=== PATIENT | male | born 1960 | race Caucasian/White ===

== ENCOUNTER 2019-05-30 11:43 | Emergency (ER) | payer MEDICARE, OTHER ==
[2019-05-30 11:59] VITALS: TEMP 98
[2019-05-30] MEDS ORDERED: SODIUM CHLORIDE 0.9% 1,000 ML IV STA ×2 (12:11→13:43)
--- NOTE | 2019-05-30 12:16 | ED ---
General Adult HPI - General Chief complaint: Dizziness Stated complaint: orthostatic hypotension Time Seen by Provider: 05/30/19 12:07 Source: patient, EMS, RN notes reviewed Mode of arrival: EMS Limitations: no limitations - History of Present Illness Initial comments: Patient is a pleasant 58-year-old male presenting to the emergency department or lightheadedness. Symptoms have been for a couple days, worse today. Patient believes he has been eating and drinking normally. Patient states he does get lightheaded, especially with standing up. [place] reported patient had orthostatic hypotension. Patient is therefore alcohol problems. He should denies passing out. No headache or isolated weakness or confusion. - Related Data Home Medications Medication Instructions Recorded Confirmed Acetaminophen [Tylenol 8 Hour] 650 mg PO Q4H PRN MDD 6 TABS 05/30/19 05/30/19 Chlorpheniramine Maleate 4 mg PO Q4H PRN 05/30/19 05/30/19 [Chlor-Trimeton] DULoxetine HCL [Cymbalta] 60 mg PO DAILY@0600 05/30/19 05/30/19 Ibuprofen [Motrin] 600 mg PO Q6HR PRN 05/30/19 05/30/19 LORazepam [Ativan] 1 - 2 mg PO Q4H PRN 05/30/19 05/30/19 Loperamide [Imodium] 4 mg PO QID PRN 05/30/19 05/30/19 Metoprolol Tartrate [Lopressor] 50 mg PO BID@0600,1730 05/30/19 05/30/19 Ondansetron HCl [Zofran] 8 mg PO Q6H PRN 05/30/19 05/30/19 Tigan 200 Mg 200 mg IM Q6H PRN 05/30/19 05/30/19 Trimethobenzamide HCl [Tigan] 300 mg PO Q6H PRN 05/30/19 05/30/19 Zofran 2mg/Ml 4 mg IM Q6H PRN 05/30/19 05/30/19 amLODIPine [Norvasc] 10 mg PO DAILY@0600 05/30/19 05/30/19 traZODone HCL 50 - 150 mg PO HS 05/30/19 05/30/19 Previous Rx's Medication Instructions Recorded Magnesium Oxide [Mag-Ox] 400 mg PO TID #12 tablet 05/30/19 Potassium Chloride ER [K-Dur 20] 20 meq PO BID #8 tab 05/30/19 Allergies Allergy/AdvReac Type Severity Reaction Status Date / Time No Known Allergies Allergy Verified 05/30/19 12:17 Review of Systems ROS Statement: Those systems with pertinent positive or pertinent negative responses have been documented in the HPI. ROS Other: All systems not noted in ROS Statement are negative. Constitutional: Denies: fever Eyes: Denies: eye pain ENT: Denies: ear pain Respiratory: Denies: cough, dyspnea Cardiovascular: Denies: chest pain Endocrine: Reports: fatigue Gastrointestinal: Denies: abdominal pain, vomiting, diarrhea Genitourinary: Denies: dysuria Musculoskeletal: Denies: back pain Skin: Denies: rash Neurological: Reports: as per HPI. Denies: headache, confusion Past Medical History Past Medical History: Hypertension Additional Past Medical History / Comment(s): Alcoholism, neuropathy History of Any Multi-Drug Resistant Organisms: None Reported Past Surgical History: Cholecystectomy, Hernia Repair, Orthopedic Surgery Additional Past Surgical History / Comment(s): finger amputations Past Psychological History: Anxiety, Depression, PTSD Smoking Status: Current every day smoker Past Alcohol Use History: Abuse Past Drug Use History: Marijuana General Exam Limitations: no limitations General appearance: alert, in no apparent distress Head exam: Present: normocephalic Eye exam: Present: normal appearance, PERRL, EOMI ENT exam: Present: normal oropharynx Neck exam: Present: normal inspection Respiratory exam: Present: normal lung sounds bilaterally Cardiovascular Exam: Present: regular rate, normal rhythm GI/Abdominal exam: Present: soft. Absent: tenderness Extremities exam: Present: normal inspection. Absent: pedal edema, calf tenderness Neurological exam: Present: alert Psychiatric exam: Present: normal affect, normal mood Skin exam: Present: normal color Course Vital Signs 05/30/19 05/30/19 05/30/19 11:55 13:08 13:11 Temperature 98 F Pulse Rate 84 Pulse Rate [ 107 H Left Standing] Pulse Rate [ 104 H Left Supine [employer] ] Respiratory 18 Rate Blood Pressure 133/85 Blood Pressure 99/72 [Left Arm Standing] Blood Pressure 130/90 [Left Arm Supine] O2 Sat by Pulse 99 Oximetry 05/30/19 05/30/19 05/30/19 13:40 14:34 15:00 Temperature Pulse Rate 84 92 Pulse Rate [ 106 H Left Standing] Pulse Rate [ Left Supine [place] [place] ] Respiratory 18 18 Rate Blood Pressure 99/72 153/94 Blood Pressure 90/55 [Left Arm Standing] Blood Pressure [Left Arm Supine] O2 Sat by Pulse 96 100 Oximetry 05/30/19 15:31 Temperature Pulse Rate 106 H Pulse Rate [ Left Standing] Pulse Rate [ Left Supine [employer] ] Respiratory 16 Rate Blood Pressure 99/73 Blood Pressure [Left Arm Standing] Blood Pressure [Left Arm Supine] O2 Sat by Pulse 96 Oximetry EKG Findings - EKG Comments: EKG Findings:: Normal sinus rhythm at 80. MD 128. QRS 82. QT 408. QTC 470. Superior axis. Left posterior fascicular block. No acute ST change. Medical Decision Making - Medical Decision Making Patient reevaluated and is feeling much better. Patient states he was not lightheaded or dizzy when he got up this time. Patient is requesting discharge home. - Lab Data Result diagrams: 05/30/19 12:50 05/30/19 13:45 Lab Results 05/30/19 05/30/19 05/30/19 Range/Units 12:50 12:50 12:50 WBC 8.7 (3.8-10.6) k/uL RBC 4.25 L (4.30-5.90) m/uL Hgb 13.3 (13.0-17.5) gm/dL Hct 41.2 (39.0-53.0) % MCV 96.9 (80.0-100.0) fL MCH 31.3 (25.0-35.0) pg MCHC 32.3 (31.0-37.0) g/dL RDW 15.7 H (11.5-15.5) % Plt Count 235 (150-450) k/uL Neutrophils % 79 % Lymphocytes % 8 % Monocytes % 9 % Eosinophils % 1 % Basophils % 1 % Neutrophils # 6.8 (1.3-7.7) k/uL Lymphocytes # 0.7 L (1.0-4.8) k/uL Monocytes # 0.8 (0-1.0) k/uL Eosinophils # 0.1 (0-0.7) k/uL Basophils # 0.0 (0-0.2) k/uL PT 10.5 (9.0-12.0) sec INR 1.0 (<1.2) APTT 22.0 (22.0-30.0) sec Sodium (137-145) mmol/L Potassium (3.5-5.1) mmol/L Chloride (98-107) mmol/L Carbon Dioxide (22-30) mmol/L Anion Gap mmol/L BUN (9-20) mg/dL Creatinine (0.66-1.25) mg/dL Est GFR (CKD-EPI)AfAm (>60 ml/min/1.73 sqM) Est GFR (CKD-EPI)NonAf (>60 ml/min/1.73 sqM) Glucose (74-99) mg/dL Plasma Lactic Acid Altaf (0.7-2.0) mmol/L Calcium (8.4-10.2) mg/dL Phosphorus (2.5-4.5) mg/dL Magnesium (1.6-2.3) mg/dL Total Bilirubin (0.2-1.3) mg/dL AST (17-59) U/L ALT (4-49) U/L Alkaline Phosphatase (38-126) U/L Total Protein (6.3-8.2) g/dL Albumin (3.5-5.0) g/dL TSH (0.465-4.680) mIU/L Free T4 (0.78-2.19) ng/dL Free T3 pg/mL (2.8-5.3) pg/ml Urine Color Yellow Urine Appearance Clear (Clear) Urine pH 6.5 (5.0-8.0) Ur Specific [place] 1.014 (1.001-1.035) Urine Protein 2+ H (Negative) Urine Glucose (UA) Negative (Negative) Urine Ketones Negative (Negative) Urine Blood Negative (Negative) Urine Nitrite Negative (Negative) Urine Bilirubin Negative (Negative) Urine Urobilinogen 2.0 (<2.0) mg/dL Ur Leukocyte Esterase Negative (Negative) Urine WBC 1 (0-5) /hpf Urine Mucus Rare H (None) /hpf 05/30/19 05/30/19 Range/Units 13:45 13:45 WBC (3.8-10.6) k/uL RBC (4.30-5.90) m/uL Hgb (13.0-17.5) gm/dL Hct (39.0-53.0) % MCV (80.0-100.0) fL MCH (25.0-35.0) pg MCHC (31.0-37.0) g/dL RDW (11.5-15.5) % Plt Count (150-450) k/uL Neutrophils % % Lymphocytes % % Monocytes % % Eosinophils % % Basophils % % Neutrophils # (1.3-7.7) k/uL Lymphocytes # (1.0-4.8) k/uL Monocytes # (0-1.0) k/uL Eosinophils # (0-0.7) k/uL Basophils # (0-0.2) k/uL PT (9.0-12.0) sec INR (<1.2) APTT (22.0-30.0) sec Sodium 135 L (137-145) mmol/L Potassium 3.1 L (3.5-5.1) mmol/L Chloride 99 (98-107) mmol/L Carbon Dioxide 29 (22-30) mmol/L Anion Gap 7 mmol/L BUN 12 (9-20) mg/dL Creatinine 0.97 (0.66-1.25) mg/dL Est GFR (CKD-EPI)AfAm >90 (>60 ml/min/1.73 sqM) Est GFR (CKD-EPI)NonAf 88 (>60 ml/min/1.73 sqM) Glucose 89 (74-99) mg/dL Plasma Lactic Acid Altaf 1.2 (0.7-2.0) mmol/L Calcium 8.5 (8.4-10.2) mg/dL Phosphorus 3.1 (2.5-4.5) mg/dL Magnesium 1.1 L (1.6-2.3) mg/dL Total Bilirubin 1.1 (0.2-1.3) mg/dL AST 122 H (17-59) U/L ALT 35 (4-49) U/L Alkaline Phosphatase 182 H (38-126) U/L Total Protein 6.6 (6.3-8.2) g/dL Albumin 3.3 L (3.5-5.0) g/dL TSH 0.570 (0.465-4.680) mIU/L Free T4 1.24 (0.78-2.19) ng/dL Free T3 pg/mL 4.0 (2.8-5.3) pg/ml Urine Color Urine Appearance (Clear) Urine pH (5.0-8.0) Ur Specific [place] (1.001-1.035) Urine Protein (Negative) Urine Glucose (UA) (Negative) Urine Ketones (Negative) Urine Blood (Negative) Urine Nitrite (Negative) Urine Bilirubin (Negative) Urine Urobilinogen (<2.0) mg/dL Ur Leukocyte Esterase (Negative) Urine WBC (0-5) /hpf Urine Mucus (None) /hpf Disposition Clinical Impression: Orthostatic hypotension, Hypomagnesemia, Hypokalemia Disposition: HOME SELF-CARE Condition: Stable Instructions (If sedation given, give patient instructions): Dizziness (ED), Hypotension (ED), Hypokalemia (ED), Hypomagnesemia (ED) Additional Instructions: Please follow-up with [place], return there now. Please follow-up with primary care physician in the next couple days for recheck. Return for increased dizziness, not tolerating oral intake, worsening symptoms or other con cerns. Prescriptions: Potassium Chloride ER [K-Dur 20] 20 meq PO BID #8 tab Magnesium Oxide [Mag-Ox] 400 mg PO TID #12 tablet Is patient prescribed a controlled substance at d/c from ED?: No Referrals: Leonard Greene [STAFF PHYSICIAN] - 1-2 days Time of Disposition: 15:46
[2019-05-30 13:02] LABS: Basophils % (A) 1 %; Eosinophils # (A) 0.1 k/uL (0-0.7); Eosinophils % (A) 1 %; HCT 41.2 % (39.0-53.0); HGB 13.3 gm/dL (13.0-17.5); Lymphocytes # (A) 0.7 k/uL (1.0-4.8); Lymphocytes % (A) 8 %; MCH 31.3 pg (25.0-35.0); MCHC 32.3 g/dL (31.0-37.0); MCV 96.9 fL (80.0-100.0); Mean Platelet Volume 8.3; Monocytes # (A) 0.8 k/uL (0-1.0); Monocytes % (A) 9 %; Neutrophils # (A) 6.8 k/uL (1.3-7.7); Neutrophils % (A) 79 %; Platelet Count 235 k/uL (150-450); RBC 4.25 m/uL (4.30-5.90); RDW 15.7 % (11.5-15.5); WBC 8.7 k/uL (3.8-10.6)
[2019-05-30 13:05] LABS: Appearance,Urine Clear (Clear); Bilirubin,Urine Negative (Negative); Blood,Urine Negative (Negative); Color,Urine Yellow; Glucose,Urine (UA) Negative (Negative); Ketones,Urine Negative (Negative); Leukocyte Esterase,Urine Negative (Negative); Mucus,Urine Rare /hpf; Nitrite,Urine Negative (Negative); PH, Urine 6.5 (5.0-8.0); Protein,Urine 2+ (Negative); Specific Gravity,Urine 1.014 (1.001-1.035); WBC,Urine 1 /hpf (0-5)
[2019-05-30 13:20] LABS: Prothrombin Time 10.5 sec (9.0-12.0)
[2019-05-30] MEDS ORDERED: SODIUM CHLORIDE 0.9% 500 ML 500 ML IV STA ×2 (13:43→15:49)
[2019-05-30] MEDS ORDERED: LORazepam 2 MG/ML INJ IV STA (13:43)
--- NOTE | 2019-05-30 13:43 | XR ---
EXAMINATION TYPE: XR chest 2V DATE OF EXAM: 05/30/2019 COMPARISON: NONE HISTORY: Weakness, hypotension TECHNIQUE: Frontal and lateral views of the chest are obtained on 4 images. FINDINGS: There is no focal air space opacity, pleural effusion, or pneumothorax seen. The cardiac silhouette size is within normal limits. There are overlying cardiac leads. The osseous structures a re intact. IMPRESSION: No acute cardiopulmonary process.
[2019-05-30 14:13] LABS: ALT 35 U/L (4-49); AST 122 U/L (17-59); African American GFR (CKD) >90 (>60 ml/min/1.73 sqM); Albumin 3.3 g/dL (3.5-5.0); Alkaline Phosphatase 182 U/L (38-126); Anion Gap 7 mmol/L; Blood Urea Nitrogen 12 mg/dL (9-20); Calcium 8.5 mg/dL (8.4-10.2); Carbon Dioxide 29 mmol/L (22-30); Chloride 99 mmol/L (98-107); Glucose 89 mg/dL (74-99); Magnesium 1.1 mg/dL (1.6-2.3); Non-African American GFR(CKD) 88 (>60 ml/min/1.73 sqM); Phosphorus 3.1 mg/dL (2.5-4.5); Potassium 3.1 mmol/L (3.5-5.1); Sodium 135 mmol/L (137-145); Total Bilirubin 1.1 mg/dL (0.2-1.3); Total Protein 6.6 g/dL (6.3-8.2)
[2019-05-30 14:27] LABS: T4, Free (Free Thyroxine) 1.24 ng/dL (0.78-2.19)
[2019-05-30] MEDS ORDERED: MAGNESIUM SULFATE-D5W PMX 1 GM in DEXTROSE/WATER 1 100ML.BAG IVPB ONE (14:30)
[2019-05-30] MEDS ORDERED: MAGNESIUM OXIDE 400 MG TAB PO STA (14:30)
[2019-05-30] MEDS ORDERED: POTASSIUM CHLORIDE ER 20 MEQ TAB.ER PO STA (14:33)
[2019-05-30 16:35] VITALS: BP 148/87; PULSE 110; RESP 18
== END 2019-05-30 16:35 | disposition home or self-care (01) ==
LOC: EC 11:43
DX: I95.1 Orthostatic hypotension (principal); E83.42 Hypomagnesemia; E87.6 Hypokalemia; I10 Essential (primary) hypertension; F41.9 Anxiety disorder, unspecified; F32.9 Major depressive disorder, single episode, unspecified; F17.200 Nicotine dependence, unspecified, uncomplicated; Z79.899 Other long term (current) drug therapy
CPT/HCPCS: 36415; 93005; 84439; 84481; 80053; 83605; 83735; 84100; 84443; 85025; 85610; 85730; 81001; 71046; 99284; 96365; 96375; 96361 ×2; J2060; J3475